=== PATIENT | female | born 1995 | race American Indian/Alaskan Native ===

== ENCOUNTER 2019-10-11 18:54 | Emergency (ER) | payer MEDICAID ==
[2019-10-11 19:30] VITALS: BP 133/77
[2019-10-11 20:39] LABS: Basophils % (Auto) 0.8 % (0.0-1.8); Eosinophils % (Auto) 0.4 % (0.0-4.3); Hematocrit 34.1 % (30.3-42.9); Hemoglobin 11.5 gm/dl (10.1-14.3); Lymphocytes # (Auto) 1.8 K/mm3 (1.2-5.4); Lymphocytes % (Auto) 28.4 % (13.4-35.0); Mean Corpuscular HGB Conc 34 % (30-34); Mean Corpuscular Volume 91 fl (79-97); Monocytes # (Auto) 0.6 K/mm3 (0.0-0.8); Monocytes % (Auto) 9.1 % (0.0-7.3); Platelet Count 232 K/mm3 (140-440); Red Blood Count 3.73 M/mm3 (3.65-5.03); Red Cell Distribution Width 13.1 % (13.2-15.2)
[2019-10-11 21:02] LABS: Alanine Aminotransferase 13 units/L (7-56); Albumin 4.2 g/dL (3.9-5); BUN/Creatinine Ratio 13; Blood Urea Nitrogen 8 mg/dL (7-17); Calcium 9.5 mg/dL (8.4-10.2); Hemolysis Index 9
[2019-10-11 23:24] LABS: Bilirubin,Urine NEG (Negative); Blood,Urine NEG (Negative); Color,Urine Yellow (Yellow); Mucus,Urine FEW /HPF; Protein,Urine <15 mg/dL mg/dL (Negative); Urobilinogen,Urine < 2.0 mg/dL (<2.0); WBC,Urine < 1.0 /HPF (0.0-6.0)
== END 2019-10-12 02:09 | disposition home or self-care (01) ==
LOC: ED 18:54
DX: O23.599 Infection of other part of genital tract in pregnancy, unspecified trimester (principal); O26.891 Other specified pregnancy related conditions, first trimester; R10.2 Pelvic and perineal pain; Z79.899 Other long term (current) drug therapy; Z3A.08 8 weeks gestation of pregnancy
CPT/HCPCS: 36415; 76801; 80053; 81001; 83690; 84702; 85025; 86900; 86901; 87210